=== PATIENT | male | born 1995 | race Two or more races ===

== ENCOUNTER 2022-02-13 21:36 | Emergency (ER) | payer OTHER ==
[2022-02-13 21:48] VITALS: BP 140/75; PULSE 80; TEMP 98.6; BMI 29.8
[2022-02-13] MEDS ORDERED: KETOROLAC TROMETHAMINE 30 MG/1 ML VIAL IM ONE (22:41)
[2022-02-13] MEDS ORDERED: KETOROLAC TROMETHAMINE 30 MG/1 ML VIAL ONE (22:47)
== END 2022-02-13 23:42 | disposition home or self-care (01) ==
LOC: JER 21:36
PROC: 3E0233Z Introduction of Anti-inflammatory into Muscle, Percutaneous Approach (ICD-10-PCS; principal; 2022-02-13)
DX: M77.01 Medial epicondylitis, right elbow (principal)
CPT/HCPCS: 99284-25

== ENCOUNTER 2025-06-03 15:21 | Emergency (ER) | payer OTHER ==
[2025-06-03 15:37] VITALS: BP 139/66; PULSE 94; RESP 20; TEMP 98.1; BMI 37.0
[2025-06-03] MEDS ORDERED: LIDOCAINE 4% PATCH TP ONE (16:15)
[2025-06-03] MEDS ORDERED: ACETAMINOPHEN 325 MG TABLET (FP) ONE (16:15)
[2025-06-03] MEDS ORDERED: CEPHALEXIN MONOHYDRATE 500 MG CAPSULE (UD) ONE (16:15)
[2025-06-03] MEDS: LIDOCAINE 5% TOPICAL PATCH TP ONE (16:19)
[2025-06-03] MEDS: CEPHALEXIN MONOHYDRATE 500 MG CAPSULE (UD) PO ONE (16:19)
[2025-06-03] MEDS: ACETAMINOPHEN 500 MG TABLET (FP) PO ONE (16:20)
[2025-06-03] MEDS ORDERED: LIDOCAINE PATCH REMOVAL MC SCH (22:00)
== END 2025-06-03 16:42 | disposition home or self-care (01) ==
LOC: JER 15:21
DX: L73.9 Follicular disorder, unspecified (principal); M54.2 Cervicalgia
CPT/HCPCS: 76882-TC-LT; 82962; 99284-25